=== PATIENT | male | born 1945 | race Caucasian/White ===

== ENCOUNTER 2021-04-18 13:44 | Outpatient (CLI) | payer MEDICARE ==
[2021-04-18 15:01] LABS: MICROSCOPIC NOT IND
[2021-04-18] MEDS ORDERED: FINA5TAB4 PO (15:03)
[2021-04-18] MEDS ORDERED: CYAN-27 PO (15:03)
[2021-04-18] MEDS ORDERED: ALPR0.254 PO (15:03)
[2021-04-18] MEDS ORDERED: HYDR-2214 PO (15:03)
[2021-04-18] MEDS ORDERED: TAMS-11 PO (15:03)
[2021-04-18 15:06] LABS: BASOPHILS % (AUTO) 0 % (0-1); EOSINOPHILS % (AUTO) 2 % (1-7); LYMPHOCYTES % (AUTO) 31 % (22-44); MEAN CORPUSCULAR HEMOGLOBIN 30.7 pg (27.5-34.5); MEAN CORPUSCULAR HGB CONC 34.4 g/dL (33.2-36.2); MEAN PLATELET VOLUME 6.4 fL (7.4-10.4); MONOCYTES % (AUTO) 8 % (2-9); NEUTROPHILS % (AUTO) 59 % (42-75); PLATELET COUNT 325 x10^3/uL (130-400); RED BLOOD COUNT 5.43 x10^6/uL (4.38-5.82); RED CELL DISTRIBUTION WIDTH 13.9 % (9.4-14.8)
[2021-04-18 15:12] LABS: ALANINE AMINOTRANSFERASE 30 U/L (12-78); ALBUMIN 3.6 g/dL (3.4-5.0); ANION GAP 4 mmol/L (5-15); CALCIUM 9.5 mg/dL (8.5-10.1); CHLORIDE 104 mmol/L (98-107); CREATININE 0.94 mg/dL (0.7-1.3)
[2021-04-18 15:14] LABS: ALKALINE PHOSPHATASE 85 U/L (45-117); BILIRUBIN,TOTAL 0.4 mg/dL (0.2-1.0); TOTAL PROTEIN 7.4 g/dL (6.4-8.2)
[2021-04-18 15:24] LABS: INTERNATIONAL NORMALIZED RATIO 1.01 (0.93-1.1); PROTHROMBIN TIME 10.8 Seconds (9.6-11.5)
[2021-05-08] MEDS ORDERED: HYDR-2214 PO (08:25)
== END 2021-04-18 23:59 | disposition home or self-care (01) ==
LOC: STAR 13:44
PROVIDERS: ATTEND Urology
DX: Z01.818 Encounter for other preprocedural examination (principal); N40.1 Benign prostatic hyperplasia with lower urinary tract symptoms; I45.10 Unspecified right bundle-branch block
CPT/HCPCS: 36415; 80053; 81003; 85025; 85610; 85730; 87086; 93005

== ENCOUNTER 2021-05-15 14:11 | Outpatient (CLI) | payer MEDICARE ==
[~2021-05-15 14:11] MED LIST: ALPR0.254 PO; CYAN-27 PO; FINA5TAB4 PO; HYDR-2214 PO; TAMS-11 PO
== END 2021-05-15 23:59 | disposition home or self-care (01) ==
LOC: RAD 14:11
PROVIDERS: ATTEND Urology
DX: N40.1 Benign prostatic hyperplasia with lower urinary tract symptoms (principal); N13.8 Other obstructive and reflux uropathy; N32.3 Diverticulum of bladder; Z90.89 Acquired absence of other organs
CPT/HCPCS: 51600; 74430; Q9958